=== PATIENT | female | born 1985 | race Caucasian/White ===

== ENCOUNTER 2022-01-30 19:31 | Inpatient (IN) ==
[2022-01-30] MEDS ORDERED: ONDANSETRON 4 MG/2 ML VIAL IV PRN (20:32)
[2022-01-30] MEDS ORDERED: TRANEXAMIC ACID 1,000 MG in SODIUM CHLORIDE 0.9% 100 ML IV PRN (20:32)
[2022-01-30] MEDS ORDERED: miSOPROStoL 200 MCG TABLET RECTAL PRN (20:32)
[2022-01-30] MEDS ORDERED: LACTATED RINGERS 500 ML IV PRN (20:32)
[2022-01-30] MEDS ORDERED: CARBOPROST TROMETHAMINE 250 MCG/ML AMP IM PRN (20:32)
[2022-01-30] MEDS ORDERED: BUTORPHANOL 2 MG/ML VIAL IV PRN (20:32)
[2022-01-30] MEDS ORDERED: MEPERIDINE 50 MG/1 ML VIAL IM PRN (20:32)
[2022-01-30] MEDS ORDERED: OXYTOCIN/LR 20 UNIT/1,000 ML BAG IV ONE (20:32)
[2022-01-30] MEDS ORDERED: METHYLERGONOVINE 0.2 MG/1 ML AMP IM PRN (20:32)
[2022-01-30 21:03] LABS: Basophils % 0.2 % (0.0-0.8); Eosinophils # 0.1 10*3/uL (0.0-0.87); Eosinophils % 0.6 % (0.00-10.9); Hematocrit 37.4 VOL% (35.7-47.0); Hemoglobin 12.4 GM/DL (12.0-16.0); Immature Granulocytes % 0.2 %; Immature Granulocytes Absolute 0.02 #; Lymphocytes # 1.5 10*3/uL (1.4-4.0); Lymphocytes % 15.7 % (21.3-54.2); Mean Corpuscular HGB Conc 33.2 GM/DL (32-36); Mean Corpuscular Volume 96.9 FL (87-102); Monocytes # 0.5 10*3/uL (0.11-0.8); Monocytes % 5.4 % (1.7-12.7); Neutrophils % 77.9 % (38.7-73.9); Platelet Count 136 T/CUMM (130-400); Red Blood Count 3.86 MC/CUMM (3.8-5.5); Red Cell Distribution Width 12.9 % (9.3-17.3); White Blood Count 9.6 T/CUMM (4-12)
[2022-01-30] MEDS: CLINDAMYCIN INJ 900 MG/50 ML PREMIX IV SCH (21:24)
[2022-01-30 21:25] LABS: Albumin 2.8 G/DL (3.4-5.0); Bilirubin,Total 0.4 MG/DL (0.20-1.00); Calcium 8.4 MG/DL (8.5-10.1); Osmolality,Calculated 278.4 MOS/KG (273-304); Potassium 3.9 MMOL/L (3.5-5.1); Total Protein 6.4 G/DL (6.4-8.2)
[2022-01-30] MEDS ORDERED: diphenhydrAMINE 50 MG/1 ML VIAL IV PRN (23:06)
[2022-01-30] MEDS ORDERED: CITRIC ACID/SODIUM CITRATE 30 ML UDCUP PO ONE (23:06)
[2022-01-30] MEDS ORDERED: FAMOTIDINE 20 MG/2 ML VIAL IV ONE (23:06)
[2022-01-30] MEDS ORDERED: LACTATED RINGERS 1,000 ML IV ONE (23:06)
[2022-01-30] MEDS ORDERED: NALOXONE 0.4 MG/ML VIAL IV PRN (23:06)
[2022-01-30] MEDS: LACTATED RINGERS 1,000 ML IV SCH (23:16)
[2022-01-31] MEDS: ePHEDrine 50 MG/ML VIAL IV PRN ×4 (00:28→00:32)
[2022-01-31] MEDS: fentaNYL 2 MCG/ROPIV 0.2% EPID 100 ML EPIDURAL SCH ×2 (00:33→09:29)
[2022-01-31 02:12] LABS: Mucus,Urine Few /LPF (Occasional); RBC,Urine <1 /HPF (0-4); Squamous Epithelial Cell,Urine Occasional /HPF (0-10)
[2022-01-31 02:13] LABS: Bilirubin,Urine Negative (Negative); Blood, Urine Negative (Negative); Glucose,Urine (UA) Negative (Negative); Ketones,Urine 80 mg/dL (Negative); Nitrite,Urine Negative (Negative); Protein,Urine Negative (Negative); Urine Appearance Clear (Clear); Urine Color Yellow (Yellow); Urine Specific Gravity 1.025 (1.001-1.035); Urine Urobilinogen 0.2 eU/dL (<2.0); Urine pH 5.5 (4.5-8.0)
[2022-01-31] MEDS: LACTATED RINGERS 1,000 ML IV SCH (05:06)
[2022-01-31] MEDS: CLINDAMYCIN INJ 900 MG/50 ML PREMIX IV SCH (05:21)
[2022-01-31 08:42] LABS: Cord Arterial Blood HCO3 18.3 MMOL/L
[2022-01-31 08:44] LABS: Cord Venous Blood HCO3 21.9 MMOL/L; Cord Venous Blood PCO2 41.1 MMHG; Cord Venous Blood PO2 32.4
[2022-01-31] MEDS ORDERED: OXYTOCIN/LR 20 UNIT/1,000 ML BAG IV ONE ×3 (09:15→12:10)
[2022-01-31] MEDS ORDERED: IBUPROFEN 800 MG TABLET PO ONE (11:07)
[2022-01-31] MEDS ORDERED: MEASLES/MUMPS/RUBELLA VACCINE 0.5 ML VIAL SUBCUT ONE (12:10)
[2022-01-31] MEDS ORDERED: BENZOCAINE 20%/MENTHOL 0.5% SPRAY 56 GM CAN TOP PRN (12:10)
[2022-01-31] MEDS ORDERED: BISACODYL 10 MG SUPP RECTAL PRN (12:10)
[2022-01-31] MEDS ORDERED: LANOLIN 50% CREAM 0.3 OZ TUBE TOP PRN (12:10)
[2022-01-31] MEDS ORDERED: oxyCODONE/ACETAMINOPHEN 5-325 MG TABLET PO PRN (12:10)
[2022-01-31] MEDS ORDERED: ONDANSETRON 4 MG/2 ML VIAL IV PRN (12:10)
[2022-01-31] MEDS ORDERED: ACETAMINOPHEN 325 MG TABLET PO PRN (12:10)
[2022-01-31] MEDS ORDERED: HYDROCORTISONE 2.5% RECTAL CREAM 30 GM TUBE TOP PRN (12:10)
[2022-01-31] MEDS ORDERED: RHO(D) IMMUNE GLOBULIN 300 MCG SYRINGE IM ONE (12:10)
[2022-01-31] MEDS ORDERED: DIPH/TET/ACEL PERT BOOSTER VACCINE 0.5 ML VIAL IM ONE (12:10)
[2022-01-31] MEDS: WITCH HAZEL PADS 100/JAR TOP PRN ×2 (17:08→20:42)
[2022-01-31] MEDS: DOCUSATE SODIUM 100 MG CAPSULE PO SCH ×2 (17:08→20:42)
[2022-01-31] MEDS: oxyCODONE/ACETAMINOPHEN 5-325 MG TABLET PO PRN (20:42)
[2022-02-01] MEDS: IBUPROFEN 800 MG TABLET PO PRN (02:49)
[2022-02-01 05:40] LABS: Basophils % 0.2 % (0.0-0.8); Eosinophils % 0.4 % (0.00-10.9); Hemoglobin 10.4 GM/DL (12.0-16.0); Immature Granulocytes % 0.5 %; Immature Granulocytes Absolute 0.05 #; Lymphocytes # 1.9 10*3/uL (1.4-4.0); Mean Corpuscular HGB Conc 32.5 GM/DL (32-36); Mean Corpuscular Volume 98.2 FL (87-102); Mean Platelet Volume 12.2 FL (9.6-12.0); Monocytes # 0.8 10*3/uL (0.11-0.8); Monocytes % 7.9 % (1.7-12.7); Platelet Count 114 T/CUMM (130-400); Red Blood Count 3.26 MC/CUMM (3.8-5.5); Red Cell Distribution Width 13.1 % (9.3-17.3); White Blood Count 10.4 T/CUMM (4-12)
[2022-02-01] MEDS: DOCUSATE SODIUM 100 MG CAPSULE PO SCH ×2 (09:18→20:37)
[2022-02-01] MEDS ORDERED: RHO(D) IMMUNE GLOBULIN 300 MCG SYRINGE IM ONE (19:00)
[2022-02-01] MEDS: oxyCODONE/ACETAMINOPHEN 5-325 MG TABLET PO PRN (20:38)
[2022-02-02] MEDS: IBUPROFEN 800 MG TABLET PO PRN (07:26)
[2022-02-02] MEDS: DOCUSATE SODIUM 100 MG CAPSULE PO SCH (07:26)
[2022-02-02] MEDS: oxyCODONE/ACETAMINOPHEN 5-325 MG TABLET PO PRN (07:29)
[2022-02-02 07:30] VITALS: BP 107/68
== END 2022-02-02 13:15 | disposition home or self-care (01) | DRG 807 ==
LOC: N.LDOUT 19:31 → N.LD 19:32 → N.OB 02-01 09:42
PROVIDERS: ADMIT Specialist; ATTEND Obstetrics & Gynecology